=== PATIENT | female | born 1990 | race African-American/Black ===

== ENCOUNTER 2017-07-08 18:07 | Emergency (ER) | payer SELFPAY ==
[~2017-07-08] VITALS: Ht 167.6 cm; Wt 59.3 kg
[2017-07-08 19:20] VITALS: BP 132/87
[2017-07-08] MEDS ORDERED: CEFTRIAXONE SODIUM 250 MG/VIAL IM ONE (19:45)
[2017-07-08] MEDS ORDERED: AZITHROMYCIN 500 MG TABLET PO ONE (19:45)
[2017-07-08] MEDS ORDERED: DIPHENHYDRAMINE 25MG CAPSULE PO ONE (19:45)
[2017-07-08 20:00] LABS: CLARITY URINE CLEAR (CLEAR); COLOR URINE YELLOW (YELLOW); GLUCOSE URINE NEGATIVE (NEGATIVE); KETONES URINE NEGATIVE (NEGATIVE); LEUKOCYTE ESTERASE URINE NEGATIVE (NEGATIVE); NITRITE URINE NEGATIVE (NEGATIVE); OCCULT BLOOD URINE NEGATIVE (NEGATIVE); PROTEIN URINE NEGATIVE (NEGATIVE); SPECIFIC GRAVITY URINE 1.016 (1.005-1.030)
[2017-07-08] MEDS ORDERED: LIDOCAINE HCL 1% 20ML VIAL (Pyxis) INJ INFIL ONE (20:00)
[2017-07-11 04:16] LABS: CHLAMYDIA TRACHOMATIS NAA Negative (Negative); NEISSERIA GONORRHOEAE NAA Negative (Negative)
== END 2017-07-08 20:20 | disposition home or self-care (01) ==
LOC: ER 18:07
DX: Z76.0 Encounter for issue of repeat prescription (principal); Z20.2 Contact with and (suspected) exposure to infections with a predominantly sexual mode of transmission; G40.909 Epilepsy, unspecified, not intractable, without status epilepticus; G80.9 Cerebral palsy, unspecified; F79 Unspecified intellectual disabilities
CPT/HCPCS: 81003; 81025; 87491; 87591; 96372; 99284; J0696; J3490; Q0163